=== PATIENT | female | born 1950 | race Caucasian/White ===

== ENCOUNTER 2022-02-07 08:08 | Outpatient (REF) | payer MEDICARE, SELFPAY ==
[2022-02-07 10:48] LABS: MANUAL DIFF FLAG NO
[2022-02-07 10:52] LABS: Basophils Percent Auto 0.7 % (0-2); Eosinophils Absolute Auto 0.3 X10*3/uL (0.0-0.4); Eosinophils Percent Auto 4.7 % (0-4); Hematocrit 39.6 % (37.0-47.0); Hemoglobin 13.3 g/dl (12.0-16.0); Imm Gran Abs Auto 0.03 X10*3/uL (0.00-0.03); Imm Gran Pct Auto 0.5 % (0.0-0.4); Lymphocytes Absolute Auto 1.8 X10*3/uL (1.2-4.9); Lymphocytes Percent Auto 30.4 % (20-40); Mean Corpuscular HGB Conc 33.6 g/dl (31.0-35.0); Mean Corpuscular Hemoglobin 30.9 pg (27.0-33.0); Mean Corpuscular Volume 91.9 fL (80.0-98.0); Mean Platelet Volume 10.4 fL (9.4-12.3); Monocytes Absolute Auto 0.5 X10*3/uL (0.1-1.2); Neutrophils Absolute Auto 3.1 x10*3/uL (2.0-8.3); Neutrophils Percent Auto 54.7 % (45-73); Platelet Count 268 X10*3/uL (160-400); Red Blood Count 4.31 X10*6/uL (4.20-5.50); Red Cell Distribution Width 13.2 % (11.0-16.0); White Blood Count 5.8 X10*3/uL (4.8-10.8)
[2022-02-07 11:27] LABS: Alanine Aminotransferase 18 U/L (0-31); Albumin Level 4.2 g/dL (3.5-5.0); Alkaline Phosphatase 82 U/L (39-117); Anion Gap 13 (12-20); Aspartate Amino Transferase 22 U/L (5-31); Bilirubin Total 0.6 mg/dL (0.0-1.0); Blood Urea Nitrogen 25 mg/dL (9-16); Calcium 10.3 mg/dL (8.4-10.2); Carbon Dioxide 25 mmol/L (22-29); Chloride 104 mmol/L (96-108); Cholesterol 247 mg/dL; Estimated Glomerular Filt Rate 51; Glucose Fasting 92 mg/dL (60-99); HDL Cholesterol 59 mg/dL; LDL Cholesterol Calculated 170 mg/dl; Potassium 4.1 mmol/L (3.3-5.1); Sodium 138 mmol/L (135-145); Total Protein 7.3 g/dL (6.5-8.0); Triglycerides 90 mg/dL; Uric Acid 7.5 mg/dL (2.4-5.7)
== END 2022-02-07 08:09 | disposition home or self-care (01) ==
LOC: HO.MANLDS 08:08
PROVIDERS: PCP Physician Assistant; Visit Provider Physician Assistant
DX: M10.072 Idiopathic gout, left ankle and foot (principal); E78.2 Mixed hyperlipidemia
CPT/HCPCS: 36415; 80053; 80061; 84550; 85025

== ENCOUNTER 2024-03-14 08:21 | Outpatient (REF) | payer MEDICARE, SELFPAY ==
[2024-03-14 13:08] LABS: MANUAL DIFF FLAG NO
[2024-03-14 13:32] LABS: Basophils Absolute Auto 0.1 X10*3/uL (0.0-0.2); Basophils Percent Auto 0.9 % (0-2); Eosinophils Absolute Auto 0.3 X10*3/uL (0.0-0.4); Eosinophils Percent Auto 3.9 % (0-4); Hematocrit 42.5 % (37.0-47.0); Hemoglobin 14.1 g/dl (12.0-16.0); Imm Gran Abs Auto 0.03 X10*3/uL (0.00-0.03); Imm Gran Pct Auto 0.4 % (0.0-0.4); Lymphocytes Absolute Auto 2.3 X10*3/uL (1.2-4.9); Lymphocytes Percent Auto 33.7 % (20-40); Mean Corpuscular HGB Conc 33.2 g/dl (31.0-35.0); Mean Corpuscular Volume 93.4 fL (80.0-98.0); Mean Platelet Volume 10.7 fL (9.4-12.3); Monocytes Absolute Auto 0.6 X10*3/uL (0.1-1.2); Monocytes Percent Auto 8.8 % (2-11); Neutrophils Absolute Auto 3.5 x10*3/uL (2.0-8.3); Neutrophils Percent Auto 52.3 % (45-73); Platelet Count 283 X10*3/uL (160-400); Red Blood Count 4.55 X10*6/uL (4.20-5.50); Red Cell Distribution Width 13.1 % (11.0-16.0); White Blood Count 6.7 X10*3/uL (4.8-10.8)
[2024-03-14 13:51] LABS: Estimated Average Glucose 105 mg/dL; Hemoglobin A1c % 5.3 % (<6.0)
[2024-03-14 13:51] LABS: Alanine Aminotransferase 20 U/L (0-31); Albumin Level 4.4 g/dL (3.5-5.0); Alkaline Phosphatase 81 U/L (39-117); Anion Gap 15 (12-20); Aspartate Amino Transferase 24 U/L (5-31); Bilirubin Total 0.5 mg/dL (0.0-1.0); Blood Urea Nitrogen 25 mg/dL (9-16); C Reactive Protein 1.14 mg/dL (< or = 0.50); Calcium 11.1 mg/dL (8.4-10.2); Carbon Dioxide 27 mmol/L (22-29); Chloride 100 mmol/L (96-108); Estimated Glomerular Filt Rate > 60; Glucose Random 94 mg/dL (60-115); Iron 90 mcg/dL (30-160); Percent Iron Saturation 29 % (15-50); Sodium 138 mmol/L (135-145); Total Iron Binding Capacity 311 mcg/dL (228-428); Total Protein 8.1 g/dL (6.5-8.0); Unsaturated Iron Binding 221 ug/dL
[2024-03-14 14:11] LABS: Ferritin 237 ng/mL (10-250); Free T4 (Free Thyroxine) 1.15 ng/dL (0.71-1.85); Thyroid Stimulating Hormone 1.95 uIU/mL (0.32-4.0)
[2024-03-14 14:15] LABS: Folate 14.7 ng/mL (> or = 4.0); Vitamin B12 497 pg/mL (200-900)
[2024-03-14 14:21] LABS: Erythrocyte Sedimentation Rate 26 MM/HR (0-20)
== END 2024-03-14 08:22 | disposition home or self-care (01) ==
LOC: HO.MANLDS 08:21
PROVIDERS: Visit Provider Physician Assistant
DX: Z00.00 Encounter for general adult medical examination without abnormal findings (principal); G43.909 Migraine, unspecified, not intractable, without status migrainosus
CPT/HCPCS: 36415; 80053; 82306; 82607; 82728; 82746; 83036; 83540; 84439; 84443; 85025; 85652; 86140

== ENCOUNTER 2024-04-23 08:31 | Outpatient (REF) | payer MEDICARE, SELFPAY ==
[2024-04-23 13:54] LABS: Calcium 10.1 mg/dL (8.4-10.2); Cholesterol 205 mg/dL (<200); HDL Cholesterol 54 mg/dL (>40); LDL Cholesterol Calculated 132 mg/dL (<100); Triglycerides 99 mg/dL (<150)
[2024-04-23 14:05] LABS: Vitamin D 25-OH Total 46.6 ng/mL (>30)
[2024-04-23 14:06] LABS: Parathyroid Hormone Intact 46.3 pg/mL (8.7-77.1)
== END 2024-04-23 08:32 | disposition home or self-care (01) ==
LOC: HO.MANLDS 08:31
PROVIDERS: Visit Provider Physician Assistant
DX: E78.2 Mixed hyperlipidemia (principal)
CPT/HCPCS: 36415; 80061; 82306; 82310; 83970; 84100